=== PATIENT | female | born 1970 | race Caucasian/White ===

== ENCOUNTER 2019-04-10 11:44 | Inpatient (IN) ==
[2019-04-10] MEDS ORDERED: SODIUM CHLORIDE 0.9% 1000ML 1,000 ML IV ONE (12:08)
[2019-04-10] MEDS ORDERED: DIAZEPAM 5 MG/ML INJ 10ML VIAL IV STA ×2 (12:09→13:16)
[2019-04-10 13:25] LABS: Eosinophils # (auto) 0.07 K/uL (0-0.5); Eosinophils % (auto) 0.8 %; Hematocrit (blood only) 37.6 % (37-47); Hemoglobin 12.7 g/dL (12.0-16.0); Immature Granulocytes # (auto) 0.03 K/uL (0.00-0.02); Immature Granulocytes % (auto) 0.3 %; Lymphocytes # (auto) 1.36 K/uL (1.2-3.4); Mean Corpuscular Hemoglobin 29.5 pg (25-34); Mean Corpuscular Hgb Conc 33.8 g/dL (32-36); Mean Corpuscular Volume 87.2 fL (80-100); Mean Platelet Volume 8.8 fL (7.4-10.4); Monocytes # (auto) 0.78 K/uL (0.11-0.59); Monocytes % (auto) 8.6 %; Neutrophils # (auto) 6.84 K/uL (1.4-6.5); Neutrophils % (auto) 75.3 %; Platelet Count 279 K/uL (130-400); RDW Coefficient of Variation 13.9 % (11.5-14.5); RDW Standard Deviation 44.5 fL (36.4-46.3); Red Blood Count 4.31 M/uL (4.2-5.4); White Blood Count 9.08 K/uL (4.8-10.8)
--- NOTE | 2019-04-10 14:04 | XRay Report ---
SINGLE VIEW CHEST CLINICAL HISTORY: Atypical chest pain. FINDINGS: An AP, portable, semierect chest radiograph is obtained. No prior studies are available for comparison at the time of dictation. The examination is degraded by portable technique and patient r otation. The cardiomediastinal silhouette is unremarkable. The lungs and pleural spaces are clear. No pneumothorax is seen. The bony thorax is grossly intact. IMPRESSION: No active disease in the chest. Electronically signed by: Haroldo Easton M.D. 04/10/2019 2:02 PM
[2019-04-10 14:16] LABS: Partial Thromboplastin Ratio 0.9; Partial Thromboplastin Time 23.9 Seconds (21.0-31.0); Prothrombin Time 10.4 Seconds (9.0-12.0)
[2019-04-10 14:23] LABS: Pregnancy Test, Serum Negative (Negative)
[2019-04-10 14:25] LABS: Alanine Aminotransferase 78 U/L (12-78); Albumin Level 3.2 gm/dl (3.4-5.0); Alkaline Phosphatase 103 U/L (45-117); Aspartate Aminotransferase 64 U/L (15-37); BUN Creatinine Ratio 6.8 (10-20); Bilirubin Direct < 0.1 mg/dl (0-0.2); Bilirubin,Total 0.2 mg/dl (0.2-1); Calcium 5.5 mg/dl (8.5-10.1); Carbon Dioxide 20 mmol/L (21-32); Chloride 110 mmol/L (98-107); Creatine Kinase 304 U/L (26-192); Creatinine Clr Calc Pharmacy 82.4 ml/min; Est GFR (African American) 91.9; Est GFR (Non-African American) 79.3; Glucose 114 mg/dl (70-99); Lipase 73 U/L (73-393); Magnesium 1.5 mg/dl (1.8-2.4); Potassium 3.3 mmol/L (3.5-5.1); Sodium 138 mmol/L (136-145); Total Protein 6.7 gm/dl (6.4-8.2); Troponin I < 0.015 ng/ml (0-0.045)
[2019-04-10 14:26] LABS: Blood Urea Nitrogen 6 mg/dl (7-18)
[2019-04-10] MEDS ORDERED: POTASSIUM CHLORIDE 10 MEQ TABCR PO STA (14:39)
[2019-04-10] MEDS ORDERED: CALCIUM GLUCONATE 10% 1,000 MG in SODIUM CHLORIDE 0.9% 50 ML IV STA ×2 (14:39→14:45)
[2019-04-10] MEDS ORDERED: MoRPHine SULFATE 4 MG/ML 1 ML CARP\\VIAL IV STA (14:47)
[2019-04-10] MEDS ORDERED: ACETAMINOPHEN 325 MG TAB PO PRN (14:59)
[2019-04-10] MEDS ORDERED: KETOROLAC TROMETHAMINE 15 MG/ML VIAL IV PRN (15:00)
[2019-04-10] MEDS ORDERED: HYDROmorphone INJ 0.5 MG/0.5 ML SYR IV PRN (15:01)
[2019-04-10] MEDS ORDERED: POLYETHYLENE (MIRALAX) 17 GM PACK PO PRN ×2 (15:02→16:30)
[2019-04-10] MEDS ORDERED: CALCIUM CARBONATE 1250MG TAB PO STA (15:06)
[2019-04-10] MEDS ORDERED: POTASSIUM CHLORIDE / WTR 10 MEQ/100 ML PLCT IV STA (15:12)
--- NOTE | 2019-04-10 15:27 | History & Physical Report ---
Date of Service April 10, 2019 Assessment & Plan (1) Muscle spasm: (2) Hypocalcemia: This is a 48-year-old female who has significant past medical history of osteoporosis, celiac sprue, and healing stress fracture of left tibia/calcaneus who presents to [facility] ED secondary to numbness/tingling of face, lips, arms x3 days; and severe muscle spasms x1 day. In ED pt found to have profound electrolyte abnormalities with K 3.3, Mag 1.5, Phos 0.7, calcium 5.5, CK 304 EKG revealed sinus tachycardia She received 1st infusion of IV Reclast 04/06 - likely etiology of profound electrolyte abnormalities Muscle spasms tx initially with IVF and valium with minimal relief admit to PCU 1g IV calcium gluconate ordered in ED will replete with additional 1g repeat Ca with 7pm, 1am and am labs aggressive electrolyte repletion as documented below consult PT/OT in a.m. continue IVF for hydration serial labs check PTH (3) Hypomagnesemia: mag 1.5 2g mag sulfate ordered repeat 7pm, 1am and am labs replete as necessary (4) Hypokalemia: K 3.3 given 20meq x 1 in ED supplement with KCL rider x 2 repeat K 7pm, 1am and am labs replete as necessary (5) Hypophosphatemia: Phos 0.7 IV phos 30mml x 1 then Neutra phos 2 tabs q4hr repeat phos at 7pm, 1am and with amlabs (6) Vitamin D deficiency: last Vit D was 26 03/31 initiate vitamin D supplementation + Calcium (7) Osteoporosis: Pt with DEXA 07/16/18 reveals osteoporosis had first Reclast infusion 04/06 - likely etiology of electrolyte abnormalities will need follow up with Rheumatology at discharge (8) Celiac sprue: Does not follow gluten-free diet due to cost will place on gluten free diet while in house (9) Stress fracture of ankle: Pt follows with podiatry due to stress fx to L calcaneus and Tibia bone stimulator at HS Full WB to b/l lower ext (10) DVT prophylaxis: Lovenox Disposition: Admit to PCU; likely discharge to home when able Follow-up: PCP Dr. Bruce upon discharge along with appropriate rheumatology follow up for osteoporosis and recent infusion with reclast Pt seen and examined in collaboration with Dr. Little, please see addendum Starting 04/11/19 pt will be under the care fo Dr. Camargo History of Present Illness Chief Complaint: Numbness/tingling to face, lip, arms x 3 days; severe muscle spasms x 1 day. Primary Care Provider: Janelle Bruce, This is a 48-year-old female who has significant past medical history of osteoporosis, celiac sprue, and healing stress fracture of left tibia/calcaneus who presents to [facility] ED secondary to numbness/tingling of face, lips, arms x3 days; and severe muscle spasms x1 day. and son are at bedside. Of significance on 04/06/2019 patient had her first infusion of IV Reclast due to her recent diagnosis of osteoporosis. The day after her infusion she developed numbness and tingling to the right side of her face and lips. Numbness and tingling progressed to her bilateral arms and legs. Her s ymptoms continued to progress to bilateral upper and lower extremity weakness and significant muscle spasms of her lower extremities. She was in severe pain and inability to walk; therefore, she came to the ED. She has never had anything like this in the past. She denies any recent illness, fever, chills, sweats, lightheadedness, dizziness, syncope, chest pain, shortness of breath, palpitations, cough, hemoptysis, nausea, vomiting, diarrhea, dysuria, increased urgency or frequency with urination, melena, hematochezia. Her last BM was yesterday and was very, "constipated like." She does have history of celiac sprue and does not follow a gluten-free diet. Her bowel movements are usually, "explosive diarrhea." She has known history of low vitamin D and has been unable to tolerate oral vitamin D and calcium supplementation due to it causing her stomach to be upset. She otherwise does not take any regular medications. She continues to follow with podiatry secondary to nonhealing stress fracture of left calcaneus and tibia. She uses a bone stimulater at bedtime. Pt PMH and records reviewed in [facility] Allergies Allergy/AdvReac Type Severity Reaction Status Date / Time cimetidine Allergy Unknown Jaundice Verified 04/10/19 13:22 iodine Allergy Unknown Cardiac Verified 04/10/19 13:22 symptoms Home Medications Home Medications Medication Instructions Recorded Confirmed Type diphenhydramine HCl [Benadryl] 25 mg PO DAILY PRN 04/10/19 04/10/19 History ibuprofen 400 mg PO Q6H PRN 04/10/19 04/10/19 History Past Med/Surg History Medical History Celiac sprue (Chronic) Stress fracture of ankle (Chronic) Osteoporosis (Chronic) Surgical History Hx of section (Chronic) History of hysterectomy (Chronic) Family History Father Stroke Coronary heart disease Mother Stroke Breast cancer, Onset Age: 57 Social History Preferred Language: Burmese Communication Ability: Effective Supervisor Last Model Department Required: No Beliefs That Will Affect Care: None Current Living Situation: Spouse Current Living Situation Comment: lives with spouse and 10 yr old son Other Information That Helps Us Care for You: No Feels Safe at Home: Yes Safety Concerns: Feels Safe At This Time Smoking Status: Never smoker Hx Alcohol Use: Yes Alcohol type: other Alcohol type Comment: malt beverage Alcohol Intake Frequency: Rarely Hx Substance Use: No Review of Systems Review of Systems: All systems reviewed & are unremarkable except as noted in HPI & below Physical Exam Physical Exam: Constitutional: WD/WN, acutely ill appearing F, vitals as above, NAD, sitting up in bed, pleasant, conversing easily Head: Normocephalic, Atraumatic Eyes: PERRL, conjunctivae normal, anicteric sclerae ENMT: external ear and nose normal, oropharynx with dry mucous membranes Neck: trachea midline, no thyromegaly normal visual inspection Respiratory: normal respiratory effort, lungs clear to auscultation, no wheeze, rales, rhonchi. Normal insp/exp effort, no accessory muscle use Cardiovascular: tachycardic rate, no murmur, no edema Vessels: no JVD or carotid bruit Chest: normal inspection of chest Abdomen: normal bowel sounds, soft, nontender, no hepatosplenomegaly Musculoskeletal: + scar noted dorsal aspect right ankle, no cyanosis or clubbing, strength throughout 3/5, decrease ability to flex at torso, hyporeflexic throughout Skin: no rashes, warm and dry normal turgor Neurologic: PERRL, EOMI, accommodation nl, no face palsy, no dysarthria CN's II-XI intact bilaterally and moves all extremities Psychiatric: A+Ox3, euthymic affect Lymphatic: no cervical or axillary lymphadenopathy : deferred Results & Data Vital Signs (Past 12 Hours) Vital Signs Temp Pulse Resp BP Pulse Ox 04/10/19 15:00 96 H 15 100 04/10/19 14:30 97 H 38 H 100 04/10/19 14:00 102 H 35 H 100 04/10/19 13:30 106 H 36 H 100 04/10/19 13:00 116 H 21 04/10/19 12:30 114 H 26 H 04/10/19 12:16 126 H 37 H 98 04/10/19 11:56 36.6 C 120 H 38 H 149/86 H 98 04/10/19 11:48 121 H 32 H 149/86 H 97 Laboratory Results Short CBC 04/10/19 Range/Units 12:51 WBC 9.08 (4.8-10.8) K/uL Hgb 12.7 (12.0-16.0) g/dL Hct 37.6 (37-47) % Plt Count 279 (130-400) K/uL BMP 04/10/19 04/10/19 12:51 13:52 Sodium Cancelled 138 Potassium Cancelled 3.3 L Chloride Cancelled 110 H Carbon Dioxide Cancelled 20 L BUN Cancelled 6 L Creatinine Cancelled 0.86 Glucose Cancelled 114 H Calcium Cancelled 5.5 L* Cardiac Enzymes 04/10/19 04/10/19 Range/Units 12:51 13:52 Total Creatine Kinase Cancelled 304 H Troponin I Cancelled < 0.015 Liver Function 04/10/19 04/10/19 Range/Units 12:51 13:52 Total Bilirubin Cancelled 0.2 Direct Bilirubin Cancelled < 0.1 AST Cancelled 64 H ALT Cancelled 78 Alkaline Phosphatase Cancelled 103 Albumin Cancelled 3.2 L Diagnostic Findings CXR: IMPRESSION: No active disease in the chest. Medications Administered Discontinued Medications Diazepam (Valium) 5 mg IV NOW STA Stop: 04/10/19 12:10 Last Admin: 04/10/19 12:14 Dose: 5 mg Documented by: [id number] Diazepam (Valium) 5 mg IV NOW STA Stop: 04/10/19 13:17 Last Admin: 04/10/19 14:28 Dose: 5 mg Documented by: [id number] Sodium Chloride (Nss 1000ml) 1,000 mls @ 999 mls/hr IV .Q1H1M ONE Stop: 04/10/19 13:08 Last Infusion: 04/10/19 14:19 Dose: 0 mls/hr Documented by: [id number] Admin: 04/10/19 13:15 Dose: 999 mls/hr Documented by: [id number] Calcium Gluconate 1,000 mg/ (Sodium Chloride) 60 mls @ 240 mls/hr IV NOW STA Stop: 04/10/19 14:53 Last Admin: 04/10/19 15:10 Dose: 240 mls/hr Documented by: [id number] Morphine Sulfate (Morphine Sulfate) 4 mg IV NOW STA Stop: 04/10/19 14:48 Last Admin: 04/10/19 15:10 Dose: 4 mg Documented by: [id number] Potassium Chloride (Klor-Con M10) 20 meq PO NOW STA Stop: 04/10/19 14:40 Last Admin: 04/10/19 15:10 Dose: 20 meq Documented by: [id number] ECG Rate (beats per minute): 117 Rhythm: sinus tachycardia Code Status & VTE Plan Code Status Full Code VTE Prophylaxis Plan VTE Prophylaxis will be ordered: Yes Supervising Physician Co-Signing Physician Notes I, Dr. Jj Little, have seen and examined the patient with physician research study assistant and would like to comment that Margaret Jaramillo is a 48 year old female with past medical history of VITAMIN D DEFICENCY and OSTEOPOROSIS who on 04/06/19 was administered infusion including Zoledronic acid 5 mg IV (combined with diphenhydramaine, epinephrine, hydrocortisone) for osteoporosis treatment and subsequently developed generalized body aches and MUSCLE SPASMS and GENERALIZED WEAKNESS by 04/08/19 and was brought to the ED by her family members and found to have SEVERE HYPOCALCEMIA of 5.5 and SEVERE HYPOPHOSPHATEMIA of 0.7 HYPOMAGNESEMIA of 1.5 and mild HYPOKALEMIA of 3.3 and ELEVATED CREATININE KINASE On Physical Exam General: has generalized weakness, could not sit up without assistance, hands are clutched to towels to relieve hand cramping pain, weakness of lower extremities when asked to raise the legs above the bed and when asked to move the toes Lungs: clear to auscultation bilaterally Heart: tachycardia resolving Abdomen: soft, nontender, positive bowel sounds -the multiple electrolyte deficiencies of SEVERE HYPOCALCEMIA and SEVERE HYPOPHOSPHATEMIA likely as MEDICATION SIDE EFFECTS (initial encounter) to the Zoledronic acid which contributes to the MUSCLE SPASMS and GENERALIZED WEAKNESS , body aches and neuropathic pain, and ELEVATED CREATININE KINASE -patient is to get IV and oral supplements of calcium, phosphate, potassium, and IV fluids -will trend electrolytes at 7PM on 04/10/19 and again at 1 AM on 04/11/19 and adjust supplements according to lab results -pain control with acetaminophen prn, Toradol prn, and dilaudid prn -patient will need also continued outpatient management of OSTEOPOROSIS AND VITAMIN DEFICIENCY but avoid IV bisphosphonates -agrees with other assessment and plans as described by physician research study assistant My colleague Dr. Lizy Camargo will be following the patient as hospitalist starting on 04/11/19
[2019-04-10] MEDS ORDERED: POTASSIUM PHOS 3 MMOL/1 ML INFUSION IV STA (15:28)
[2019-04-10] MEDS: MAGNESIUM SULFATE / D5W 1 GM/100 ML BAG IV SCH ×4 (15:37→18:30)
[2019-04-10] MEDS ORDERED: ALUMINUM/MAGNESIUM SUSP 30 ML UDC PO PRN (16:30)
[2019-04-10] MEDS ORDERED: MAGNESIUM HYDROXIDE SUSP 30 ML UDC PO PRN (16:30)
[2019-04-10] MEDS ORDERED: ONDANSETRON INJ 2 MG/ML 2 ML VIAL IV PRN (16:30)
[2019-04-10] MEDS ORDERED: ACETAMINOPHEN 1,000 MG/100 ML VIAL IV ONE (16:45)
[2019-04-10] MEDS ORDERED: MAGNESIUM OXIDE 400 MG TAB PO ONE (17:00)
[2019-04-10] MEDS: POT PHOSPHATE MONOBASIC W/ SOD TAB PO SCH ×2 (17:36→21:31)
[2019-04-10] MEDS: SODIUM CHLORIDE 0.9% 1000ML 1,000 ML IV SCH (18:30)
[2019-04-10] MEDS ORDERED: POTASSIUM PHOSPHATE 30 MMOL in SODIUM CHLORIDE 0.9% 500 ML IV ONE (18:30)
--- NOTE | 2019-04-10 19:27 | Emergency Department Note ---
Entered by Dawna Hartley acting as a scribe for Jaime Woo History of Present Illness General Chief complaint: Illness Time Seen by Provider: 04/10/19 12:05 Source: patient History of Present Illness Onset (ago): day(s) 3 Location: head (illness) Pain Consistency: + other (worsening) Maximum Pain Intensity: 7 Quality: + other (feels like her whole body is electrified) Associated symptoms: + other (abdominal tightness, cannot move joints, hand pain) The patient is a 48 year old F who presents to the Emergency Room with complaints of worsening illness that started 3 days ago. The patient states that she got a "calcium infusion" in her left arm, 3 days ago, for osteoporosis. She notes that she feels like her whole body is electrified. She adds that she did not get electrified. She notes that she is currently experiencing hand pain and abdominal pain. She describes her abdominal pain as a tightness. She adds that she cannot move any of her joints because her muscles feel like they are tightening. She denies falling or hitting her head. Home Medications Home Medications Medication Instructions Recorded Confirmed Type diphenhydramine HCl [Benadryl] 25 mg PO DAILY PRN 04/10/19 04/10/19 History ibuprofen 400 mg PO Q6H PRN 04/10/19 04/10/19 History Allergies Allergy/AdvReac Type Severity Reaction Status Date / Time cimetidine Allergy Unknown Jaundice Verified 04/10/19 13:22 iodine Allergy Unknown Cardiac Verified 04/10/19 13:22 symptoms Past Med/Surg History Medical History Celiac sprue (Chronic) Stress fracture of ankle (Chronic) Osteoporosis (Chronic) Surgical History Hx of section (Chronic) History of hysterectomy (Chronic) Family History Father Stroke Coronary heart disease Mother Stroke Breast cancer, Onset Age: 57 Social History Preferred Language: Ghanaian Communication Ability: Effective Community Coordinator Required: No Beliefs That Will Affect Care: None Current Living Situation: Spouse Current Living Situation Comment: lives with spouse and 10 yr old son Other Information That Helps Us Care for You: No Feels Safe at Home: Yes Safety Concerns: Feels Safe At This Time Smoking Status: Never smoker Hx Alcohol Use: Yes Alcohol type: other Alcohol type Comment: malt beverage Alcohol Intake Frequency: Rarely Hx Substance Use: No Review of Systems See HPI for pertinent positives & negatives. and A total of 10 systems reviewed and were otherwise negative Physical Exam Vital Signs Vital Signs - 24 hr 04/10/19 11:48 04/10/19 11:56 04/10/19 12:16 Temperature 36.6 C Temperature Source Oral Sepsis Recent Fever Within 48 Hours No Sepsis New/Unexplained Change in Mental Status No Sepsis Action Taken by Nursing No Action Required Pulse Rate 121 H 120 H 126 H Pulse Rate from SpO2 Sensor 121 H Pulse Rhythm Regular Regular Respiratory Rate 32 H 38 H 37 H Respiratory Pattern Rapid/Shallow Blood Pressure 149/86 H 149/86 H Blood Pressure Mean 107 107 Pulse Oximetry 97 98 98 Oxygen Delivery Method Room Air Room Air 04/10/19 12:30 04/10/19 13:00 04/10/19 13:30 Temperature Temperature Source Sepsis Recent Fever Within 48 Hours Sepsis New/Unexplained Change in Mental Status Sepsis Action Taken by Nursing Pulse Rate 114 H 116 H 106 H Pulse Rate from SpO2 Sensor 107 H Pulse Rhythm Respiratory Rate 26 H 21 36 H Respiratory Pattern Blood Pressure Blood Pressure Mean Pulse Oximetry 100 Oxygen Delivery Method 04/10/19 14:00 04/10/19 14:30 04/10/19 15:00 Temperature Temperature Source Sepsis Recent Fever Within 48 Hours Sepsis New/Unexplained Change in Mental Status Sepsis Action Taken by Nursing Pulse Rate 102 H 97 H 96 H Pulse Rate from SpO2 Sensor 102 H 98 H 96 H Pulse Rhythm Respiratory Rate 35 H 38 H 15 Respiratory Pattern Blood Pressure Blood Pressure Mean Pulse Oximetry 100 100 100 Oxygen Delivery Method GENERAL: She is oriented to person, place, and time. She appears well-developed and well-nourished. She does not appear distressed. HENT: Exam performed. - Head: Normocephalic and atraumatic. - Right Ear: External ear normal. No mastoid tenderness. - Left Ear: External ear normal. No mastoid tenderness. - Mouth/Throat: The oropharynx is clear and moist. No trismus in the jaw. No dental abscesses or uvula swelling. No oropharyngeal exudate or tonsillar abscesses. EYES: Conjunctivae and EOM are normal. Pupils are equal, round, and reactive to light. Right eye exhibits no discharge. Left eye exhibits no discharge. No scler al icterus. NECK: Normal range of motion. Neck supple. No JVD present. No spinous process tenderness present. No carotid bruit present. No rigidity. No tracheal deviation and normal range of motion present. No Brudzinski's sign and no Kernig's sign noted. CV: Normal rate, regular rhythm, normal heart sounds and intact distal pulses. There is no peripheral edema. Palpable radial pulses bue. PULM/CHEST: Effort normal and breath sounds normal. No respiratory distress. No stridor. She has no wheezes. She has no rales. Chest Wall: She exhibits no tenderness. ABD: The abdomen is soft. Bowel sounds are normal. She has no distension. No mass is present. There is no tenderness. There is no rebound, no guarding, no Quintanilla's sign and no tenderness at McBurney's point. Rovsig negative MUSC/SKEL: Appears to be having muscles spasm in right upper extremity, can straighten and move all extremities, ecchymosis from previous infusion over left upper extremity. LYMPH: No cervical adenopathy. NEURO: She is alert and oriented to person, place, and time. She has normal strength. No cranial nerve deficit or sensory deficit. Coordination and gait normal. GCS eye subscore is 4. GCS verbal subscore is 5. GCS motor subscore is 6. cerbellar tests wnl. SKIN: Skin is warm and dry. She is not diaphoretic. PSYCH: She has a normal mood and affect. Her behavior is normal. Judgment and thought content normal. Course 1205: The patient was evaluated in room A2. A complete history and physical exam was performed. 1315: The patient keeps screaming that her muscles keep spasming. The patient is demanding more Valium stating that the 5mg only has taken the edge off. The patient told the nursing staff that she currently has chest pain. I repeated an EKG that showed a sinus rhythm with a rate of 117. The VT, QRS, and QTC intervals are within normal limits. There is no ST elevation or depression. 1434: The patient's vital signs are stable. The labs are significant for a calcium level of 5.5, magnesium of 1.5, and potassium of 3.3. The hypocalcemia explains the patient's spasm in upper extremities. I gave the patient calcium gluconate 1 gram IV and magnesium sulfate 2 grams piggy-back. The patient will also be given oral potassium in the ED. The patient will be admitted to the hospital service. I reviewed the patient's case with Savana Madera PA-C for [facility]. They will evaluate the patient for further man agement. Administered Medications Sodium Chloride (Nss 1000ml) 1,000 mls @ 80 mls/hr IV .[id number] FIDENCIO Stop: 05/10/19 18:59 Last Admin: 04/10/19 18:30 Dose: 80 mls/hr Documented by: [id number] Potassium Phosphate 30 mmol/ (Sodium Chloride) 510 mls @ 88 mls/hr IV 1830 ONE Stop: 04/11/19 00:17 Last Admin: 04/10/19 18:40 Dose: 88 mls/hr Documented by: [id number] Potassium Phosphate (Phospha 250 Neutral 155-852-130 Mg) 2 tab PO QID FIDENCIO Stop: 05/10/19 16:59 Last Admin: 04/10/19 17:36 Dose: 2 tab Documented by: [id number] Discontinued Medications Calcium Carbonate (Os-Angel 500) 1,250 mg PO ONCE STA Stop: 04/10/19 15:07 Last Admin: 04/10/19 16:40 Dose: Not Given Documented by: [id number] Diazepam (Valium) 5 mg IV NOW STA Stop: 04/10/19 12:10 Last Admin: 04/10/19 12:14 Dose: 5 mg Documented by: [id number] Diazepam (Valium) 5 mg IV NOW STA Stop: 04/10/19 13:17 Last Admin: 04/10/19 14:28 Dose: 5 mg Documented by: [id number] Sodium Chloride (Nss 1000ml) 1,000 mls @ 999 mls/hr IV .Q1H1M ONE Stop: 04/10/19 13:08 Last Infusion: 04/10/19 14:19 Dose: 0 mls/hr Documented by: [id number] Admin: 04/10/19 13:15 Dose: 999 mls/hr Documented by: [id number] Magnesium Sulfate/Dextrose (Magnesium Sulfate / D5w) 1 gm in 100 mls @ 100 mls/hr IV Q1H FIDENCIO Stop: 04/10/19 16:44 Last Admin: 04/10/19 18:19 Dose: Not Given Documented by: [id number] Infusion: 04/10/19 16:52 Dose: 0 mls/hr Documented by: [id number] Admin: 04/10/19 15:37 Dose: 100 mls/hr Documented by: [id number] Calcium Gluconate 1,000 mg/ (Sodium Chloride) 60 mls @ 240 mls/hr IV NOW STA Stop: 04/10/19 14:53 Last Infusion: 04/10/19 15:40 Dose: 0 mls/hr Documented by: [id number] Admin: 04/10/19 15:10 Dose: 240 mls/hr Documented by: [id number] Acetaminophen (Ofirmev) 1,000 mg in 100 mls @ 200 mls/hr IV 1645 ONE; Protocol Stop: 04/10/19 17:14 Last Admin: 04/10/19 17:37 Dose: Not Given Documented by: [id number] Magnesium Sulfate/Dextrose (Magnesium Sulfate / D5w) 1 gm in 100 mls @ 100 mls/hr IV Q1H FIDENCIO Stop: 04/10/19 18:59 Last Admin: 04/10/19 18:30 Dose: Not Given Documented by: [id number] Infusion: 04/10/19 18:30 Dose: 0 mls/hr Documented by: [id number] Infusion: 04/10/19 16:54 Dose: 75 mls/hr Documented by: [id number] Admin: 04/10/19 16:52 Dose: 100 mls/hr Documented by: [id number] Potassium Chloride (K Ed / Wtr) 10 meq in 100 mls @ 100 mls/hr IV Q1H STA Stop: 04/10/19 16:11 Last Infusion: 04/10/19 19:13 Dose: 0 mls/hr Documented by: [id number] Infusion: 04/10/19 17:36 Dose: 75 mls/hr Documented by: [id number] Admin: 04/10/19 17:35 Dose: 100 mls/hr Documented by: [id number] Magnesium Oxide (Mag-Ox) 400 mg PO 1700 ONE Stop: 04/10/19 17:01 Last Admin: 04/10/19 17:36 Dose: 400 mg Documented by: [id number] Morphine Sulfate (Morphine Sulfate) 4 mg IV NOW STA Stop: 04/10/19 14:48 Last Admin: 04/10/19 15:10 Dose: 4 mg Documented by: [id number] Potassium Chloride (Klor-Con M10) 20 meq PO NOW STA Stop: 04/10/19 14:40 Last Admin: 04/10/19 15:10 Dose: 20 meq Documented by: [id number] Medical Decision Making Medical Records Attestation: I reviewed the patient's medical records. Home Medications Current Medication List: was personally reviewed by me Laboratory Data Attestation: I reviewed the patient's lab results. Result diagrams: 04/10/19 12:51 04/10/19 13:52 Lab Results 04/10/19 04/10/19 04/10/19 Range/Units 12:20 12:51 12:51 WBC 9.08 (4.8-10.8) K/uL RBC 4.31 (4.2-5.4) M/uL Hgb 12.7 (12.0-16.0) g/dL Hct 37.6 (37-47) % MCV 87.2 (80-100) fL MCH 29.5 (25-34) pg MCHC 33.8 (32-36) g/dL RDW Std Deviation 44.5 (36.4-46.3) fL RDW Coeff of Iván 13.9 (11.5-14.5) % Plt Count 279 (130-400) K/uL MPV 8.8 (7.4-10.4) fL Immature Gran % (Auto) 0.3 % Neut % (Auto) 75.3 % Lymph % (Auto) 15.0 % [place] % (Auto) 8.6 % Eos % (Auto) 0.8 % Baso % (Auto) 0.0 % Immature Gran # (Auto) 0.03 H (0.00-0.02) K/uL Neut # (Auto) 6.84 H (1.4-6.5) K/uL Lymph # (Auto) 1.36 (1.2-3.4) K/uL [place] # (Auto) 0.78 H (0.11-0.59) K/uL Eos # (Auto) 0.07 (0-0.5) K/uL Baso # (Auto) 0.00 (0-0.2) K/uL PT Cancelled INR Cancelled APTT Cancelled PTT Ratio Cancelled Sodium Potassium Chloride Carbon Dioxide Anion Gap BUN Creatinine Est Cr Clr Drug Dosing Est GFR ( Amer) Est GFR (Non-Af Amer) BUN/Creatinine Ratio Glucose POC Glucose 109 H (70-99) Calcium Phosphorus (2.5-4.9) mg/dl Magnesium Total Bilirubin Direct Bilirubin AST ALT Alkaline Phosphatase Total Creatine Kinase Troponin I Total Protein Albumin Lipase TSH (0.300-4.500) uIu/ml HCG, Qual 04/10/19 04/10/19 04/10/19 Range/Units 12:51 12:51 13:52 WBC (4.8-10.8) K/uL RBC (4.2-5.4) M/uL Hgb (12.0-16.0) g/dL Hct (37-47) % MCV (80-100) fL MCH (25-34) pg MCHC (32-36) g/dL RDW Std Deviation (36.4-46.3) fL RDW Coeff of Iván (11.5-14.5) % Plt Count (130-400) K/uL MPV (7.4-10.4) fL Immature Gran % (Auto) % Neut % (Auto) % Lymph % (Auto) % [place] % (Auto) % Eos % (Auto) % Baso % (Auto) % Immature Gran # (Auto) (0.00-0.02) K/uL Neut # (Auto) (1.4-6.5) K/uL Lymph # (Auto) (1.2-3.4) K/uL [place] # (Auto) (0.11-0.59) K/uL Eos # (Auto) (0-0.5) K/uL Baso # (Auto) (0-0.2) K/uL PT INR APTT PTT Ratio Sodium Cancelled 138 Potassium Cancelled 3.3 L Chloride Cancelled 110 H Carbon Dioxide Cancelled 20 L Anion Gap Cancelled 8.0 BUN Cancelled 6 L Creatinine Cancelled 0.86 Est Cr Clr Drug Dosing Cancelled 82.4 Est GFR ( Amer) Cancelled 91.9 Est GFR (Non-Af Amer) Cancelled 79.3 BUN/Creatinine Ratio Cancelled 6.8 L Glucose Cancelled 114 H POC Glucose (70-99) Calcium Cancelled 5.5 L* Phosphorus (2.5-4.9) mg/dl Magnesium Cancelled 1.5 L Total Bilirubin Cancelled 0.2 Direct Bilirubin Cancelled < 0.1 AST Cancelled 64 H ALT Cancelled 78 Alkaline Phosphatase Cancelled 103 Total Creatine Kinase Cancelled 304 H Troponin I Cancelled < 0.015 Total Protein Cancelled 6.7 Albumin Cancelled 3.2 L Lipase Cancelled 73 TSH (0.300-4.500) uIu/ml HCG, Qual Cancelled 04/10/19 04/10/19 04/10/19 Range/Units 13:52 13:52 13:52 WBC (4.8-10.8) K/uL RBC (4.2-5.4) M/uL Hgb (12.0-16.0) g/dL Hct (37-47) % MCV (80-100) fL MCH (25-34) pg MCHC (32-36) g/dL RDW Std Deviation (36.4-46.3) fL RDW Coeff of Iván (11.5-14.5) % Plt Count (130-400) K/uL MPV (7.4-10.4) fL Immature Gran % (Auto) % Neut % (Auto) % Lymph % (Auto) % [place] % (Auto) % Eos % (Auto) % Baso % (Auto) % Immature Gran # (Auto) (0.00-0.02) K/uL Neut # (Auto) (1.4-6.5) K/uL Lymph # (Auto) (1.2-3.4) K/uL [place] # (Auto) (0.11-0.59) K/uL Eos # (Auto) (0-0.5) K/uL Baso # (Auto) (0-0.2) K/uL PT 10.4 INR 1.0 APTT 23.9 PTT Ratio 0.9 Sodium Potassium Chloride Carbon Dioxide Anion Gap BUN Creatinine Est Cr Clr Drug Dosing Est GFR ( Amer) Est GFR (Non-Af Amer) BUN/Creatinine Ratio Glucose POC Glucose (70-99) Calcium Phosphorus 0.7 L* (2.5-4.9) mg/dl Magnesium Total Bilirubin Direct Bilirubin AST ALT Alkaline Phosphatase Total Creatine Kinase Troponin I Total Protein Albumin Lipase TSH (0.300-4.500) uIu/ml HCG, Qual Negative 04/10/19 Range/Units 13:52 WBC (4.8-10.8) K/uL RBC (4.2-5.4) M/uL Hgb (12.0-16.0) g/dL Hct (37-47) % MCV (80-100) fL MCH (25-34) pg MCHC (32-36) g/dL RDW Std Deviation (36.4-46.3) fL RDW Coeff of Iván (11.5-14.5) % Plt Count (130-400) K/uL MPV (7.4-10.4) fL Immature Gran % (Auto) % Neut % (Auto) % Lymph % (Auto) % [place] % (Auto) % Eos % (Auto) % Baso % (Auto) % Immature Gran # (Auto) (0.00-0.02) K/uL Neut # (Auto) (1.4-6.5) K/uL Lymph # (Auto) (1.2-3.4) K/uL [place] # (Auto) (0.11-0.59) K/uL Eos # (Auto) (0-0.5) K/uL Baso # (Auto) (0-0.2) K/uL PT INR APTT PTT Ratio Sodium Potassium Chloride Carbon Dioxide Anion Gap BUN Creatinine Est Cr Clr Drug Dosing Est GFR ( Amer) Est GFR (Non-Af Amer) BUN/Creatinine Ratio Glucose POC Glucose (70-99) Calcium Phosphorus (2.5-4.9) mg/dl Magnesium Total Bilirubin Direct Bilirubin AST ALT Alkaline Phosphatase Total Creatine Kinase Troponin I Total Protein Albumin Lipase TSH 1.810 (0.300-4.500) uIu/ml HCG, Qual Imaging Data Radiologist's Impression: Radiology results as stated below per my review and the radiologist's interpretation: SINGLE VIEW CHEST CLINICAL HISTORY: Atypical chest pain. FINDINGS: An AP, portable, semierect chest radiograph is obtained. No prior studies are available for comparison at the time of dictation. The examination is degraded by portable technique and patient rotation. The cardiomediastinal silhouette is unremarkable. The lungs and pleural spaces are clear. No pneumothorax is seen. The bony thorax is grossly intact. IMPRESSION: No active disease in the chest. Electronically signed by: Haroldo Easton M.D. 04/10/2019 2:02 PM ECG Data Attestation: I personally reviewed and interpreted this ECG as follows: Indication: + abdominal pain Rate (beats per minute): 114 Rhythm: + sinus rhythm ECG Intervals/blocks: + Normal QRS ECG ST segments: no ST depression and no ST elevation ECG Findings: + Other (VT, QRS, and QTc intervals within normal limits, baseline wandering due to patient movement and spasms) Blood Pressure Blood Pressure Findings: Elevated blood pressure Blood Pressure Disposition: further management by hospitalist LUIS EDUARDO Narrative 1205: The patient was evaluated in room A2. A complete history and physical exam was performed. 1315: The patient keeps screaming that her muscles keep spasming. The patient is demanding more Valium stating that the 5mg only has taken the edge off. The patient told the nursing staff that she currently has chest pain. I repeated an EKG that showed a sinus rhythm with a rate of 117. The VT, QRS, and QTC inte rvals are within normal limits. There is no ST elevation or depression. 1434: The patient's vital signs are stable. The labs are significant for a calcium level of 5.5, magnesium of 1.5, and potassium of 3.3. The hypocalcemia explains the patient's spasm in upper extremities. I gave the patient calcium gluconate 1 gram IV and magnesium sulfate 2 grams piggy-back. The patient will also be given oral potassium in the ED. The patient will be admitted to the hospital service. I reviewed the patient's case with Savana Madera PA-C for Dr. Little [facility] Hospitalist. They will evaluate the patient for further management. Impression & Plan Hypocalcemia, Hypomagnesemia, Hypokalemia Discharge Plan Visit Data *Final* Discharge Date/Time: 04/10/19 16:14 Chief Complaint: Illness ED Provider: Jaime Woo Discharge Problem: Hypocalcemia, Hypomagnesemia, Hypokalemia Patient Disposition: Admitted As Inpatient Discharge Instructions Interventions: ED Discharge Assessment Last Done: 04/10/19 16:14 The scribe's documentation has been prepared under my direction and personally reviewed by me in its entirety. I confirm that the note above accurately reflects all work, treatment, procedures, and medical decision making performed by me.
[2019-04-10 20:00] LABS: Magnesium 2.4 mg/dl (1.8-2.4)
[2019-04-10] MEDS ORDERED: CALCIUM CARBONATE 1250MG TAB PO SCH (21:00)
[2019-04-10 21:01] LABS: Albumin Globulin Ratio 0.9 (0.9-2); Albumin Level 2.9 gm/dl (3.4-5.0); BUN Creatinine Ratio 5.5 (10-20); Bilirubin,Total 0.1 mg/dl (0.2-1); Calcium 5.5 mg/dl (8.5-10.1); Creatinine Clr Calc Pharmacy 79.6 ml/min; Est GFR (African American) 88.2; Est GFR (Non-African American) 76.1; Globulin 3.2 gm/dl (2.5-4.0); Total Protein 6.1 gm/dl (6.4-8.2)
[2019-04-10 21:04] LABS: Potassium 4.8 mmol/L (3.5-5.1)
[2019-04-10] MEDS ORDERED: CALCIUM GLUCONATE 10% 10 ML VIAL IV STA (21:13)
[2019-04-10] MEDS ORDERED: CALCIUM GLUCONATE 10% 2,000 MG in SODIUM CHLORIDE 0.9% 50 ML IV STA (21:15)
[2019-04-10] MEDS: ENOXAPARIN INJ 40 MG/0.4 ML SYR SQ SCH (21:29)
[2019-04-10] MEDS: MAGNESIUM OXIDE 400 MG TAB PO SCH (21:30)
[2019-04-11 01:27] LABS: Albumin Globulin Ratio 0.9 (0.9-2); Albumin Level 2.9 gm/dl (3.4-5.0); BUN Creatinine Ratio 6.5 (10-20); Bilirubin,Total 0.2 mg/dl (0.2-1); Calcium 6.1 mg/dl (8.5-10.1); Creatinine Clr Calc Pharmacy 93.3 ml/min; Est GFR (African American) 106.8; Est GFR (Non-African American) 92.1; Globulin 3.3 gm/dl (2.5-4.0); Magnesium 2.2 mg/dl (1.8-2.4); Phosphorus 3.9 mg/dl (2.5-4.9); Potassium 3.7 mmol/L (3.5-5.1); Total Protein 6.2 gm/dl (6.4-8.2)
[2019-04-11] MEDS ORDERED: CALCIUM GLUCONATE 10% 1,000 MG in SODIUM CHLORIDE 0.9% 50 ML IV STA (02:54)
[2019-04-11] MEDS: SODIUM CHLORIDE 0.9% 1000ML 1,000 ML IV SCH ×2 (07:10→16:54)
[2019-04-11] MEDS: POT PHOSPHATE MONOBASIC W/ SOD TAB PO SCH ×4 (07:39→20:54)
[2019-04-11] MEDS: MAGNESIUM OXIDE 400 MG TAB PO SCH ×2 (07:40→20:54)
[2019-04-11] MEDS: CHOLECALCIFEROL 1,000 UNITS TAB PO SCH (07:40)
[2019-04-11 07:54] LABS: Hematocrit (blood only) 33.2 % (37-47); Hemoglobin 11.4 g/dL (12.0-16.0); Mean Corpuscular Hemoglobin 29.3 pg (25-34); Mean Corpuscular Volume 85.3 fL (80-100); Mean Platelet Volume 8.1 fL (7.4-10.4); Platelet Count 271 K/uL (130-400); RDW Coefficient of Variation 14.2 % (11.5-14.5); RDW Standard Deviation 44.3 fL (36.4-46.3); Red Blood Count 3.89 M/uL (4.2-5.4); White Blood Count 4.77 K/uL (4.8-10.8)
[2019-04-11 07:57] LABS: Mean Corpuscular Hgb Conc 34.3 g/dL (32-36)
[2019-04-11 08:27] LABS: Albumin Level 3.1 gm/dl (3.4-5.0); BUN Creatinine Ratio 5.7 (10-20); Calcium 6.4 mg/dl (8.5-10.1); Creatinine Clr Calc Pharmacy 88.6 ml/min; Est GFR (African American) 101.9; Est GFR (Non-African American) 87.9; Magnesium 2.1 mg/dl (1.8-2.4); Potassium 3.9 mmol/L (3.5-5.1)
[2019-04-11 08:43] LABS: Albumin Globulin Ratio 0.9 (0.9-2); Bilirubin,Total 0.3 mg/dl (0.2-1); Globulin 3.4 gm/dl (2.5-4.0); Phosphorus 3.1 mg/dl (2.5-4.9); Total Protein 6.5 gm/dl (6.4-8.2)
[2019-04-11] MEDS ORDERED: CALCIUM GLUCONATE 10% 1,000 MG in SODIUM CHLORIDE 0.9% 50 ML IV ONE ×2 (13:00→18:30)
--- NOTE | 2019-04-11 13:06 | Hospitalist Progress Note ---
Date of Service April 11, 2019 Assessment & Plan (1) Muscle spasm: (2) Hypocalcemia: 48-year-old female who has significant past medical history of osteoporosis, celiac sprue, and healing stress fracture of left tibia/calcaneus who presents to [facility] ED secondary to numbness/tingling of face, lips, arms x3 days; and severe muscle spasms x1 day. Got first infusion of reclast on 04/06/19 for osteoporosis. Found to have severe hypocalcemia, hypomagnesemia and hypokalemia Ca was 5.5 on admission, 6.4 this morning. Corrected for albumin is 7.1 Will replete with IV calcium gluconate 1g and continue monitoring Will continue to replete as needed (3) Hypomagnesemia: Mag 1.5 on admission, now 2.1 Continue monitoring and replete as necessary (4) Hypokalemia: K 3.3 now 3.9 this morning Continue to monitor and replete as necessary (5) Hypophosphatemia: Phos 0.7 on admission, currently 3.1 Continue to monitor and replete as necessary (6) Rhabdomyolysis: Likely due to severe electrolyte abnormalities CPK is 4300 this morning form 304 on admission Increase IVF to 125cc/hr and monitor Monitor CPK and Cr (7) Vitamin D deficiency: Last Vit D was 26 03/31 initiated on vitamin D supplementation Will need to continue Vit D and Ca supplementation on discharge considering she has h/o celiac disease too (8) Osteoporosis: Pt with DEXA 07/16/18 reveals osteoporosis Had first Reclast infusion 04/06/19 which is the likely etiology of electrolyte abnormalities Follow up with Rheumatology at discharge (9) Celiac sprue: Does not follow gluten-free diet due to cost Continue gluten free diet inpatient (10) Stress fracture of ankle: Follows with podiatry due to stress fx to L calcaneus and Tibia bone stimulator at HS Full WB to b/l lower ext (11) DVT prophylaxis: Lovenox sq Follow-up: PCP Dr. Bruce upon discharge along with appropriate rheumatology follow up for osteoporosis and recent infusion with reclast Subjective Patient seen and evaluated. Reports that that numbness, muscle spasms have resolved Reports she feels generalized muscle soreness. Denied any chest pain, palpitations, shortness of breath Denied any fevers, chills, nausea or vomiting Denied any abdominal pain, diarrhea, constipation Review of Systems Review of Systems: All systems reviewed and unremarkable except for mentioned above. Physical Exam Constitutional: well developed and well nourished; no acute distress Eyes: PERRL, conjunctivae normal, anicteric sclerae ENMT: external ear and nose normal, oropharynx normal Neck: trachea midline, no thyromegaly Respiratory: normal respiratory effort, lungs clear to auscultation Cardiovascular: RRR, no murmur, no edema Heart Sounds: normal S1 and normal S2 Gastrointestinal (Abdomen): normal bowel sounds, soft, nontender, no hepatosplenomegaly Musculoskeletal: no cyanosis or clubbing, extremities motor strength 5/5 Neurologic: PERRL, EOMI, accommodation nl, no face palsy, no dysarthria no focal motor deficits Motor/Sensory: no tremor Psychiatric: A+Ox3, euthymic affect Results & Data Vital Signs (Past 12 Hours) Vital Signs Temp Pulse Pulse Resp BP Pulse Ox 04/11/19 11:27 37.0 C 97 H 16 136/91 100 04/11/19 08:34 36.9 C 95 H 18 127/85 100 04/11/19 06:45 87 04/11/19 03:13 37.1 C 91 H 16 133/82 98 04/11/19 02:41 95 H
[2019-04-11] MEDS: ACETAMINOPHEN 325 MG TAB PO PRN (14:13)
[2019-04-11 16:41] LABS: BUN Creatinine Ratio 6.8 (10-20); Calcium 6.4 mg/dl (8.5-10.1); Creatinine Clr Calc Pharmacy 72.9 ml/min; Est GFR (African American) 80.5; Est GFR (Non-African American) 69.4
[2019-04-11] MEDS: ENOXAPARIN INJ 40 MG/0.4 ML SYR SQ SCH (20:55)
[2019-04-12] MEDS: SODIUM CHLORIDE 0.9% 1000ML 1,000 ML IV SCH ×3 (00:01→17:53)
[2019-04-12 06:32] LABS: BUN Creatinine Ratio 9.2 (10-20); Calcium 5.8 mg/dl (8.5-10.1); Creatinine Clr Calc Pharmacy 94.3 ml/min; Est GFR (African American) 110.3; Est GFR (Non-African American) 95.1; Magnesium 1.8 mg/dl (1.8-2.4); Potassium 3.8 mmol/L (3.5-5.1)
[2019-04-12] MEDS ORDERED: CALCIUM GLUCONATE 10% 1,000 MG in SODIUM CHLORIDE 0.9% 50 ML IV STA (06:43)
[2019-04-12 07:02] LABS: Phosphorus 3.3 mg/dl (2.5-4.9)
[2019-04-12] MEDS: MAGNESIUM OXIDE 400 MG TAB PO SCH ×2 (08:11→20:10)
[2019-04-12] MEDS: CHOLECALCIFEROL 1,000 UNITS TAB PO SCH (08:12)
[2019-04-12] MEDS: POT PHOSPHATE MONOBASIC W/ SOD TAB PO SCH ×4 (08:12→20:10)
[2019-04-12] MEDS ORDERED: CALCIUM GLUCONATE 10% 1,000 MG in SODIUM CHLORIDE 0.9% 50 ML IV ONE ×2 (10:00→20:00)
[2019-04-12] MEDS ORDERED: MAGNESIUM SULFATE / D5W 1 GM/100 ML BAG IV ONE (11:00)
--- NOTE | 2019-04-12 12:35 | Hospitalist Progress Note ---
Date of Service April 12, 2019 Assessment & Plan (1) Muscle spasm: (2) Hypocalcemia: 48-year-old female who has significant past medical history of osteoporosis, celiac sprue, and healing stress fracture of left tibia/calcaneus who presents to [facility] ED secondary to numbness/tingling of face, lips, arms x3 days; and severe muscle spasms x1 day. Got first infusion of reclast on 04/06/19 for osteoporosis. Found to have severe hypocalcemia, hypomagnesemia and hypokalemia Ca was 5.5 on admission Mostly related to Reclast infusion Ca 5.8 this morning. Corrected ca 6.5 Will continue IV calcium gluconate supplement Will give an additional 2g IV later Will keep Mg above 2 Might consider oral calcium citrate on discharge for better absorption on discharge Continue monitor BMP (3) Hypomagnesemia: Mag 1.5 on admission, now 1.8 Continue monitoring and replete as necessary (4) Hypokalemia: K 3.3 now 3.8 this morning Continue to monitor and replete as necessary (5) Hypophosphatemia: Phos 0.7 on admission, currently 3.3 Continue to monitor and replete as necessary (6) Rhabdomyolysis: Likely due to severe electrolyte abnormalities CPK on admission 304, then increased to 4300 --> [id number] today Consider to increase IVF to 150cc/hr and monitor Monitor CPK and Cr (7) Vitamin D deficiency: Last Vit D was 26 03/31 Continue vitamin D supplementation Will need to continue Vit D and Ca supplementation on discharge considering she has h/o celiac disease too (8) Osteoporosis: Pt with DEXA 07/16/18 reveals osteoporosis Had first Reclast infusion 04/06/19 which is the likely etiology of electrolyte abnormalities Follow up with Rheumatology at discharge (9) Celiac sprue: Does not follow gluten-free diet due to cost Continue gluten free diet inpatient (10) Stress fracture of ankle: Follows with podiatry due to stress fx to L calcaneus and Tibia bone stimulator at HS Full WB to b/l lower ext (11) DVT prophylaxis: Lovenox sq Follow-up: PCP Dr. Bruce upon discharge along with appropriate rheumatology follow up for osteoporosis and recent infusion with reclast Subjective Pt was seen an examined Sitting in chair with no distress working on his computer Pt said that she was starting to have some cramp in her calf area early this morning She said that she feels a little better today Denies any chest pain, palpitation, dizziness and SOB Physical Exam Physical Exam: General- No acute distress Head- atraumatic Eyes- PERRL, EOMI, ENT- oropharynx clear Neck- supple, no JVD Lungs- clear to auscultation Heart- regular rhythm; no murmur Abdomen- normal bowel sounds, soft, nontender Extremities- no calf tenderness Neuro- alert, oriented x 3; PERRL, EOMI; no facial palsy; no dysarthria Skin- warm & dry Results & Data Vital Signs (Past 12 Hours) Vital Signs Temp Pulse Resp BP Pulse Ox 04/12/19 11:30 36.9 C 88 18 128/86 98 04/12/19 07:30 36.7 C 87 18 132/84 98 04/12/19 03:14 37.0 C 90 14 144/87 H 97
[2019-04-12] MEDS: ENOXAPARIN INJ 40 MG/0.4 ML SYR SQ SCH (20:11)
[2019-04-12] MEDS ORDERED: CALCIUM GLUCONATE 10% 1,000 MG in SODIUM CHLORIDE 0.9% 50 ML IV SCH (22:00)
[2019-04-13] MEDS: SODIUM CHLORIDE 0.9% 1000ML 1,000 ML IV SCH ×3 (01:03→17:22)
[2019-04-13 06:31] LABS: BUN Creatinine Ratio 11.3 (10-20); Calcium 6.3 mg/dl (8.5-10.1); Creatinine Clr Calc Pharmacy 103.5 ml/min; Est GFR (Non-African American) 102.7; Magnesium 1.8 mg/dl (1.8-2.4)
[2019-04-13 06:46] LABS: Phosphorus 3.2 mg/dl (2.5-4.9)
[2019-04-13] MEDS: POT PHOSPHATE MONOBASIC W/ SOD TAB PO SCH ×4 (07:59→20:14)
[2019-04-13] MEDS: CHOLECALCIFEROL 1,000 UNITS TAB PO SCH (07:59)
[2019-04-13] MEDS: MAGNESIUM OXIDE 400 MG TAB PO SCH ×2 (07:59→20:14)
[2019-04-13] MEDS: CALCIUM GLUCONATE 10% 1,000 MG in SODIUM CHLORIDE 0.9% 50 ML IV SCH ×2 (08:52→10:09)
[2019-04-13] MEDS ORDERED: CALCIUM GLUCONATE 10% 1,000 MG in SODIUM CHLORIDE 0.9% 50 ML IV ONE ×3 (09:00→21:00)
[2019-04-13] MEDS: ACETAMINOPHEN 325 MG TAB PO PRN (11:20)
--- NOTE | 2019-04-13 18:05 | Hospitalist Progress Note ---
Date of Service April 13, 2019 Assessment & Plan (1) Muscle spasm: (2) Hypocalcemia: 48-year-old female who has significant past medical history of osteoporosis, celiac sprue, and healing stress fracture of left tibia/calcaneus who presents to [facility] ED secondary to numbness/tingling of face, lips, arms x3 days; and severe muscle spasms x1 day. Got first infusion of reclast on 04/06/19 for osteoporosis. Found to have severe hypocalcemia, hypomagnesemia and hypokalemia Ca was 5.5 on admission Mostly related to Reclast infusion Ca 6.3 this morning. Corrected ca 7 Will continue IV calcium gluconate supplement Will give an additional 2g IV later Will keep Mg above 2 Will consider oral calcium citrate on discharge for better absorption on discharge Continue monitor BMP (3) Hypomagnesemia: Mag 1.5 on admission, now 1.8 Continue monitoring and replete as necessary (4) Hypokalemia: K 3.3 now 3.8 this morning Continue to monitor and replete as necessary (5) Hypophosphatemia: Phos 0.7 on admission, currently 3.3 Continue to monitor and replete as necessary (6) Rhabdomyolysis: Likely due to severe electrolyte abnormalities CPK on admission 304, then increased to 4300 --> 3568 today Consider to increase IVF to 125 cc/hr and monitor Monitor CPK and Cr (7) Vitamin D deficiency: Last Vit D was 26 03/31 Continue vitamin D supplementation Will need to continue Vit D and Ca supplementation on discharge considering she has h/o celiac disease too (8) Osteoporosis: Pt with DEXA 07/16/18 reveals osteoporosis Had first Reclast infusion 04/06/19 which is the likely etiology of electrolyte abnormalities Follow up with Rheumatology at discharge (9) Celiac sprue: Does not follow gluten-free diet due to cost Continue gluten free diet inpatient (10) Stress fracture of ankle: Follows with podiatry due to stress fx to L calcaneus and Tibia bone stimulator at HS Full WB to b/l lower ext (11) DVT prophylaxis: Lovenox sq Follow-up: PCP Dr. Bruce upon discharge along with appropriate rheumatology follow up for osteoporosis and recent infusion with reclast Subjective Pt was seen and examined. Sitting in chair with no distress. Pt is very anxious to go home today She said that she does not have any muscle spasm symptoms. She said that she feels much better today She has been walking in the hallway Denies any chest pain, palpitation, dizziness and SOB Results & Data Vital Signs (Past 12 Hours) Vital Signs Temp Pulse Pulse Resp BP Pulse Ox 04/13/19 16:00 86 04/13/19 15:03 37.0 C 83 18 146/88 H 100 04/13/19 11:21 37.0 C 80 18 129/88 99 04/13/19 08:00 85 04/13/19 06:59 36.9 C 84 18 121/81 97
[2019-04-13] MEDS: ENOXAPARIN INJ 40 MG/0.4 ML SYR SQ SCH (20:13)
[2019-04-14] MEDS: SODIUM CHLORIDE 0.9% 1000ML 1,000 ML IV SCH ×3 (05:43→14:47)
[2019-04-14 07:20] LABS: Albumin Level 2.9 gm/dl (3.4-5.0); BUN Creatinine Ratio 9.9 (10-20); Calcium 6.9 mg/dl (8.5-10.1); Creatinine Clr Calc Pharmacy 102.2 ml/min; Est GFR (African American) 118.5; Est GFR (Non-African American) 102.2; Potassium 4.1 mmol/L (3.5-5.1)
[2019-04-14 07:35] LABS: Albumin Globulin Ratio 0.9 (0.9-2); Bilirubin,Total 0.2 mg/dl (0.2-1); Globulin 3.4 gm/dl (2.5-4.0); Total Protein 6.3 gm/dl (6.4-8.2)
[2019-04-14] MEDS: POT PHOSPHATE MONOBASIC W/ SOD TAB PO SCH ×2 (08:14→14:21)
[2019-04-14] MEDS: MAGNESIUM OXIDE 400 MG TAB PO SCH (08:14)
[2019-04-14] MEDS: CHOLECALCIFEROL 1,000 UNITS TAB PO SCH (08:14)
[2019-04-14] MEDS ORDERED: CALCIUM GLUCONATE 10% 1,000 MG in SODIUM CHLORIDE 0.9% 50 ML IV ONE (08:15)
--- NOTE | 2019-04-14 13:42 | Hospitalist Progress Note ---
Date of Service April 14, 2019 Assessment & Plan (1) Muscle spasm: (2) Hypocalcemia: 48-year-old female who has significant past medical history of osteoporosis, celiac sprue, and healing stress fracture of left tibia/calcaneus who presents to [facility] ED secondary to numbness/tingling of face, lips, arms x3 days; and severe muscle spasms x1 day. Got first infusion of reclast on 04/06/19 for osteoporosis. Found to have severe hypocalcemia, hypomagnesemia and hypokalemia Ca was 5.5 on admission Mostly related to Reclast infusion Ca 6.3 this morning. Corrected ca 7 Will continue IV calcium gluconate supplement Will give an additional 2g IV later Will keep Mg above 2 Will consider oral calcium citrate on discharge for better absorption on discharge Continue monitor BMP (3) Hypomagnesemia: Mag 1.5 on admission, now 1.8 Continue monitoring and replete as necessary (4) Hypokalemia: K 3.3 now 3.8 this morning Continue to monitor and replete as necessary (5) Hypophosphatemia: Phos 0.7 on admission, currently 3.3 Continue to monitor and replete as necessary (6) Rhabdomyolysis: Likely due to severe electrolyte abnormalities CPK on admission 304, then increased to 4300 --> 3568 today Consider to increase IVF to 125 cc/hr and monitor Monitor CPK and Cr (7) Vitamin D deficiency: Last Vit D was 26 03/31 Continue vitamin D supplementation Will need to continue Vit D and Ca supplementation on discharge considering she has h/o celiac disease too (8) Osteoporosis: Pt with DEXA 07/16/18 reveals osteoporosis Had first Reclast infusion 04/06/19 which is the likely etiology of electrolyte abnormalities Follow up with Rheumatology at discharge (9) Celiac sprue: Does not follow gluten-free diet due to cost Continue gluten free diet inpatient (10) Stress fracture of ankle: Follows with podiatry due to stress fx to L calcaneus and Tibia bone stimulator at HS Full WB to b/l lower ext (11) DVT prophylaxis: Lovenox sq Follow-up: PCP Dr. Bruce upon discharge along with appropriate rheumatology follow up for osteoporosis and recent infusion with reclast Subjective Pt was seen and examined. Sitting in chair with no distress Pt said that she feels good. She has been walking in the hallway She said that she does not have any cramp or muscle spasm Denies any chest pain, palpitation, dizziness ad SOB Results & Data Vital Signs (Past 12 Hours) Vital Signs Temp Pulse Pulse Pulse Resp BP Pulse Ox 04/14/19 12:00 36.4 C L 79 18 142/85 H 100 04/14/19 08:00 36.6 C 78 83 16 132/90 98 04/14/19 03:48 36.8 C 85 17 128/85 99
--- NOTE | 2019-04-15 09:16 | Discharge Summary ---
Date of Service April 14, 2019 Admission HPI Per Admitting Provider This is a 48-year-old female who has significant past medical history of osteoporosis, celiac sprue, and healing stress fracture of left tibia/calcaneus who presents to [facility] ED secondary to numbness/tingling of face, lips, arms x3 days; and severe muscle spasms x1 day. and son are at bedside. Of significance on 04/06/2019 patient had her first infusion of IV Reclast due to her recent diagnosis of osteoporosis. The day after her infusion she developed numbness and tingling to the right side of her face and lips. Numbness and tingling progressed to her bilateral arms and legs. Her symptoms continued to progress to bilateral upper and lower extremity weakness and significant muscle spasms of her lower extremities. She was in severe pain and inability to walk; therefore, she came to the ED. She has never had anything like this in the past. She denies any recent illness, fever, chills, sweats, lightheadedness, dizziness, syncope, chest pain, shortness of breath, palpitations, cough, hemoptysis, nausea, vomiting, diarrhea, dysuria, increased urgency or frequency with urination, melena, hematochezia. Her last BM was yesterday and was very, "constipated like." She does have history of celiac sprue and does not follow a gluten-free diet. Her bowel movements are usually, "explosive diarrhea." She has known history of low vitamin D and has been unable to tolerate oral vitamin D and calcium supplementation due to it causing her stomach to be upset. She otherwise does not take any regular medications. She continues to follow with podiatry secondary to nonhealing stress fracture of left calcaneus and tibia. She uses a bone stimulater at bedtime. Pt PMH and records reviewed in [facility] Admission Exam Per Admitting Provider Constitutional: WD/WN, acutely ill appearing F, vitals as above, NAD, sitting up in bed, pleasant, conversing easily Head: Normocephalic, Atraumatic Eyes: PERRL, conjunctivae normal, anicteric sclerae ENMT: external ear and nose normal, oropharynx with dry mucous membranes Neck: trachea midline, no thyromegaly normal visual inspection Respiratory: normal respiratory effort, lungs clear to auscultation, no wheeze, rales, rhonchi. Normal insp/exp effort, no accessory muscle use Cardiovascular: tachycardic rate, no murmur, no edema Vessels: no JVD or carotid bruit Chest: normal inspection of chest Abdomen: normal bowel sounds, soft, nontender, no hepatosplenomegaly Musculoskeletal: + scar noted dorsal aspect right ankle, no cyanosis or clubb ing, strength throughout 3/5, decrease ability to flex at torso, hyporeflexic throughout Skin: no rashes, warm and dry normal turgor Neurologic: PERRL, EOMI, accommodation nl, no face palsy, no dysarthria CN's II-XI intact bilaterally and moves all extremities Psychiatric: A+Ox3, euthymic affect Lymphatic: no cervical or axillary lymphadenopathy : deferred Principal Diagnosis Muscle spasm: Hypocalcemia: Hypomagnesemia: Hypokalemia: Hypophosphatemia: Rhabdomyolysis: Vitamin D deficiency: Osteoporosis Celiac sprue: Discharge Exam General- No acute distress Head- atraumatic Eyes- PERRL, EOMI, ENT- oropharynx clear Neck- supple, no JVD Lungs- clear to auscultation Heart- regular rhythm; no murmur Abdomen- normal bowel sounds, soft, nontender Extremities- no calf tenderness, trace edema Neuro- alert, oriented x 3; PERRL, EOMI; no facial palsy; no dysarthria Skin- warm & dry Discharge Data Allergies Allergy/AdvReac Type Severity Reaction Status Date / Time cimetidine Allergy Unknown Jaundice Verified 04/10/19 13:22 iodine Allergy Unknown Cardiac Verified 04/10/19 13:22 symptoms Consultations 04/10/19 14:39 ED Decision to Admit Stat Ordered Studies SINGLE VIEW CHEST CLINICAL HISTORY: Atypical chest pain. FINDINGS: An AP, portable, semierect chest radiograph is obtained. No prior studies are available for comparison at the time of dictation. The examination is degraded by portable technique and patient rotation. The cardiomediastinal silhouette is unremarkable. The lungs and pleural spaces are clear. No pneumothorax is seen. The bony thorax is grossly intact. IMPRESSION: No active disease in the chest. Electronically signed by: Harodlo Easton M.D. 04/10/2019 2:02 PM Dictated: 04/10/19 1402 Transcribed: 04/10/19 1402 Hospital Course (1) Muscle spasm: (2) Hypocalcemia: 48-year-old female who has significant past medical history of osteoporosis, celiac sprue, and healing stress fracture of left tibia/calcaneus who presents to [facility] ED secondary to numbness/tingling of face, lips, arms x3 days; and severe muscle spasms x1 day. Got first infusion of reclast on 04/06/19 for osteoporosis. Found to have severe hypocalcemia, hypomagnesemia and hypokalemia Ca was 5.5 on admission Mostly related to Reclast infusion Ca 6.3 this morning. Corrected ca 7 Will continue IV calcium gluconate supplement Will give an additional 2g IV later Will keep Mg above 2 Will consider oral calcium citrate on discharge for better absorption on discharge Continue monitor BMP (3) Hypomagnesemia: Mag 1.5 on admission, now 1.8 Continue monitoring and replete as necessary (4) Hypokalemia: K 3.3 now 3.8 this morning Continue to monitor and replete as necessary (5) Hypophosphatemia: Phos 0.7 on admission, currently 3.3 Continue to monitor and replete as necessary (6) Rhabdomyolysis: Likely due to severe electrolyte abnormalities CPK on admission 304, then increased to 4300 --> 3568 today Consider to increase IVF to 125 cc/hr and monitor Monitor CPK and Cr (7) Vitamin D deficiency: Last Vit D was 26 03/31 Continue vitamin D supplementation Will need to continue Vit D and Ca supplementation on discharge considering she has h/o celiac disease too (8) Osteoporosis: Pt with DEXA 07/16/18 reveals osteoporosis Had first Reclast infusion 04/06/19 which is the likely etiology of electrolyte abnormalities Follow up with Rheumatology at discharge (9) Celiac sprue: Does not follow gluten-free diet due to cost Continue gluten free diet inpatient (10) Stress fracture of ankle: Follows with podiatry due to stress fx to L calcaneus and Tibia bone stimulator at HS Full WB to b/l lower ext (11) DVT prophylaxis: Lovenox sq Follow-up: PCP Dr. Bruce upon discharge along with appropriate rheumatology follow up for osteoporosis and recent infusion with reclast Total Time Total Time Spent Total Time Spent (In Minutes): 35 minutes Total Time Includes: Examination of the Patient, Discharge Planning, Medication Reconciliation, Communication With Other Providers and Other Discharge Plan Discharge Items Patient Disposition: Home - Self-Care Reason For Visit: HYPOCALCEMIA SYMPTOMATIC Discharge Diagnosis: Muscle spasm: Hypocalcemia: Hypomagnesemia: Hypokalemia: Hypophosphatemia: Rhabdomyolysis: Vitamin D deficiency: Osteoporosis Celiac sprue: Activity: Resume your previous activity Activity Comment: as tolerated Non-emergency contact: Primary Care Provider Call non-emergency contact if: you have any medication questions Follow-up/Referrals: Janelle Bruce, [Primary Care Provider] - Diet: Regular Addtl Attending Provider Instructions: Follow up with your primary care provider Dr. Bruce on 04/15 @ 11:20 AM Check BMP, Magnesium and Phosphate level in 1 week to monitor your electrolytes Keep yourself hydrate Continue calcium and vitamin D supplement Pending Studies at Discharge: No Stand-Alone Forms: [employer], Smoking Cessation Medications and DC Order Prescriptions: New magnesium oxide 400 mg (241.3 mg magnesium) Tablet 400 mg PO DAILY 30 Days Qty: 30 RF: 0 cholecalciferol (vitamin D3) [Vitamin D3] 25 mcg (1,000 unit) Tablet 2,000 unit PO QAM 30 Days Qty: 30 RF: 0 calcium citrate 250 mg calcium tablet 250 mg PO DAILY Qty: 30 RF: 0 Continued diphenhydramine HCl [Benadryl] 25 mg Capsule 25 mg PO DAILY PRN (Reason: Allergy Symptoms) RF: 0 ibuprofen 200 mg Tablet 400 mg PO Q6H PRN (Reason: Pain) RF: 0 Discharge Orders: Discharge Order (Routine); Ordered 04/14/19 Ordered By: Christi Blanchard Admission Data Admit Date/Time: 04/10/19 15:12 Attending Provider: Christi Blanchard Admit Provider: Jj Little Primary Care Provider: Janelle Bruce Other Providers: Jj Little ; Lizy Camargo I. Other Interventions: Discharge Summary Assessment (RN) Last Done: 04/14/19 14:32 DC Date/Time DO NOT enter until pt leaves facility: 04/14/19 14:40
== END 2019-04-14 14:40 | disposition home or self-care (01) | DRG 641 ==
LOC: ED 11:44 → SUATTDRO 15:12 → 2S 15:12